=== PATIENT | female | born 1980 | race Two or more races ===

== ENCOUNTER 2021-09-24 12:39 | Emergency (ER) | payer MEDICAID ==
[~2021-09-24] VITALS: Ht 160 cm; Wt 60.8 kg
[2021-09-24 13:11] VITALS: BP 112/59
[2021-09-24] MEDS ORDERED: KETOROLAC TROMETH 60MG/2ML VIAL IM ONE (13:30)
[2021-09-24] MEDS ORDERED: METH500T22 PO (13:51)
[2021-09-24] MEDS ORDERED: IBUP600T27 PO (13:51)
== END 2021-09-24 14:17 | disposition home or self-care (01) ==
LOC: ER 12:39
DX: S39.012A Strain of muscle, fascia and tendon of lower back, initial encounter (principal); Z79.1 Long term (current) use of non-steroidal anti-inflammatories (NSAID); Z79.899 Other long term (current) drug therapy; X58.XXXA Exposure to other specified factors, initial encounter; Y93.89 Activity, other specified; Y92.89 Other specified places as the place of occurrence of the external cause; Y99.8 Other external cause status
CPT/HCPCS: 72100; 96372; 99283; J1885

== ENCOUNTER 2023-05-11 19:35 | Emergency (ER) | payer MEDICAID ==
[~2023-05-11] VITALS: Ht 160 cm; Wt 65.2 kg
[~2023-05-11 19:35] MED LIST: IBUP-1454 PO; METH-1181 PO
[2023-05-11] MEDS ORDERED: KETOROLAC TROMETH 60MG/2ML VIAL IM ONE (20:15)
[2023-05-11] MEDS ORDERED: HYDROcodone-ACET 5/325MG TAB PO ONE (20:15)
[2023-05-11] MEDS ORDERED: ACET300T58 PO (21:07)
[2023-05-11] MEDS ORDERED: IBUP-1454 PO (21:07)
[2023-05-11 21:28] VITALS: TEMP 97.8
[2023-05-11 21:50] VITALS: BP 100/53; PULSE 62; RESP 18; O2SAT 99
== END 2023-05-11 21:56 | disposition home or self-care (01) ==
LOC: ER 19:35
DX: I83.91 Asymptomatic varicose veins of right lower extremity (principal); M54.16 Radiculopathy, lumbar region
CPT/HCPCS: 72100; 93971; 96372; 99285; J1885

== ENCOUNTER 2024-05-17 18:50 | Emergency (ER) | payer MEDICAID ==
[~2024-05-17] VITALS: Ht 157.5 cm; Wt 66.2 kg
[~2024-05-17 18:50] MED LIST changes: +ACET300T58 PO
[2024-05-17 19:27] VITALS: BP 108/56; PULSE 56; RESP 16; TEMP 97.7; O2SAT 99
[2024-05-17] MEDS ORDERED: MOXI0.5D9 OP (19:39)
[2024-05-17] MEDS: DexAMETHasone SOD PHOS 10MG/1ML VIAL INJ IM ONE (19:40)
== END 2024-05-17 19:55 | disposition home or self-care (01) ==
LOC: ER 18:50
DX: H10.89 Other conjunctivitis (principal); Z79.1 Long term (current) use of non-steroidal anti-inflammatories (NSAID)
CPT/HCPCS: 96372; 99283; J1100